=== PATIENT | female | born 1985 | race Caucasian/White ===

== ENCOUNTER 2018-01-07 20:44 | Emergency (ER) | payer OTHER ==
--- NOTE | 2018-01-07 21:15 | EDM.PDOC ---
ED HPI GENERAL MEDICAL PROBLEM - General Chief Complaint: Head Injury Stated Complaint: HEAD INJURY Time Seen by Provider: 01/07/18 20:50 Source of Information: Reports: Patient, Family () History Limitations: Reports: No Limitations - History of Present Illness INITIAL COMMENTS - FREE TEXT/NARRATIVE: Deborah is a 32 yo female who presents to the ER ambulatory, accompanied by her , with concerns of a head injury. 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 Admits he had left for town and received a text from Deborah asking him where he was and that he should come home. He states she told him she thinks she hit her head but couldn't remember what happened. He returned home and found Deborah sitting in the house. States all the horses were tied up and accounted for. He thinks the incident happened between 5:30 and 6:30 this evening. He states he asked her multiple times if she remembered what happened and she still can't recall. She states the right posterior aspect of her head hurts and is tender to touch. She denies any visual disturbance. Her is concerned d/t short term memory. - Related Data Allergies Allergy/AdvReac Type Severity Reaction Status Date / Time No Known Allergies Allergy Verified 01/07/18 20:49 Home Meds: Home Meds . [No Known Home Meds] 01/03/14 [History] Past Medical History HEENT History: Reports: None Cardiovascular History: Reports: None Respiratory History: Reports: None Gastrointestinal History: Reports: None Genitourinary History: Reports: None HEAT TREATER HEAD History: Reports: None Musculoskeletal History: Reports: None Neurological History: Reports: None. Denies: Concussion Psychiatric History: Reports: None - Past Surgical History Musculoskeletal Surgical History: Reports: Arthroscopic Knee, Other (See Below) (ankle surgery (fracture)) Social & Family History - Family History Family Medical History: Noncontributory - Tobacco Use Smoking Status *Q: Never Smoker - Caffeine Use Caffeine Use: Reports: Coffee - Living Situation & Occupation Living situation: Reports: , with Spouse ED ROS GENERAL - Review of Systems Review Of Systems: See Below Constitutional: Reports: No Symptoms HEENT: Reports: No Symptoms Respiratory: Reports: No Symptoms Cardiovascular: Reports: No Symptoms Endocrine: Reports: No Symptoms GI/Abdominal: Reports: No Symptoms Neurological: Reports: Confusion, Headache, Other (short term memory loss). Denies: Pre-Existing Deficit, Syncope, Trouble Speaking, Difficulty Walking, Change in Speech ED EXAM, HEAD INJURY - Physical Exam Exam: See Below Exam Limited By: No Limitations General Appearance: Alert, No Apparent Distress Head: Atraumatic, Normocephalic, Scalp Tenderness (right occipital). No: Scalp Lacerations, Scalp Abrasions, Scalp Ecchymosis, Scalp Hematoma, Orourke's Sign, Facial Ecchymosis, Facial Tenderness, Raccoon Eyes Nexus Criteria: No: Posterior, Midline Cervical Tenderness Eyes: Bilateral Eye: EOMI, Normal Inspection, PERRL Ears: Normal External Exam, Normal Canal, Hearing Grossly Normal, Normal TMs Nose: Normal Inspection, Normal Mucousa, No Blood Throat/Mouth: Normal Inspection, Normal Lips, Normal Teeth, Normal Gums, Normal Oropharynx, Normal Voice, No Airway Compromise Neck: Non-Tender, Full Range of Motion, Stiff Neck. No: Tender Midline Respiratory: No Respiratory Distress, Lungs Clear, Normal Breath Sounds, No Accessory Muscle Use Cardiovascular: Regular Rate, Rhythm, No Murmur Neurologic: glass sagger II-XII nml As Tested, No Motor/Sensory Deficits, Alert, Normal Mood/Affect, Other (orientated to person and place, unable to determine time, able to determine it is the evening but doesn't recall the date of the month. Knows it is December. ). No: Aphasia, Facial Droop, Motor Weakness Skin: Normal Color, Warm/Dry - [place] Coma Score Best Eye Response ([place]): (4) Open Spontaneously Best Verbal Response ([place]): (5) Oriented Best Motor Response ([place]): (6) Obeys Commands Course - Vital Signs Last Recorded V/S: Last Vital Signs Temp 97.5 F 01/07/18 20:46 Pulse 70 01/07/18 20:46 Resp 16 01/07/18 20:46 BP 149/90 H 01/07/18 20:46 Pulse Ox 100 01/07/18 20:46 - Orders/Labs/Meds Orders: Active Orders 24 hr Category Date Time Status Head wo Cont [CT] Stat Exams 01/07/18 21:06 Taken Departure - Departure Time of Disposition: 21:54 Disposition: Home, Self-Care 01 Clinical Impression: Concussion injury of brain - Discharge Information *PRESCRIPTION DRUG MONITORING PROGRAM REVIEWED*: Not Applicable *COPY OF PRESCRIPTION DRUG MONITORING REPORT IN PATIENT RAFIQ: Not Applicable Instructions: Concussion, Adult, Post-Concussion Syndrome, [id number], Returning to Sports and Activities After a Concussion, Adult Forms: ED Department Discharge Additional Instructions: 1) CT of the head was negative for any bleed, fracture, hematoma, etc.. 2) Discussed post concussive treatments 3) Recommend resting tomorrow 4) Refrain from excessive use of TV, computer, phone, bright lights, loud noises 5) Advise no riding horse as discussed 6) Recommend following up with primary provider in 1 week as well 7) May use Tylenol and ibuprofen as directed on bottles 8) Recommend being accompanied by someone for next 24 hours 9) Call if any questions [phone] or return to ER if any concerns. - My Orders Last 24 Hours: My Active Orders 01/07/18 21:06 Head wo Cont [CT] Stat - Assessment/Plan Last 24 Hours: My Active Orders 01/07/18 21:06 Head wo Cont [CT] Stat Plan: Deborah has been having difficulty with certain things in regards to short term memory. 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 She knows it is the beginning of the week but doesn't exactly know what day it is. She overall is feeling well and doesn't really have any new onset of headaches. CT of the head was negative per radiologist at [facility]. Will discharge at this time , please see additional instructions for complete details. All questions answered and Deborah and her have no concerns. Feel comfortable for discharge
[2018-01-07 21:54] VITALS: BP 130/82
== END 2018-01-07 22:20 | disposition home or self-care (01) ==
LOC: CC.ED 20:44
DX: S06.0X9A Concussion with loss of consciousness of unspecified duration, initial encounter (principal); X58.XXXA Exposure to other specified factors, initial encounter
CPT/HCPCS: 70450; 99283